=== PATIENT | female | born 1965 | race African-American/Black ===

== ENCOUNTER 2019-03-27 13:58 | Emergency (ER) | payer OTHER, SELFPAY ==
[2019-03-27] MEDS ORDERED: ALPRAZolam 0.5 MG TAB ONE (14:10)
--- NOTE | 2019-03-27 14:54 | RAD ---
RADIOGRAPH CHEST 1 VIEW: HISTORY: 53-year-old female with dyspnea. FINDINGS: There are no air space densities, pulmonary edema, pneumothorax, or cardiomegaly. The lateral costop hrenic angles are sharp. Mildly displaced fractures of posterior aspects of the right 6th and 7th rib s. IMPRESSION: 1. No acute cardiopulmonary findings. 2. Displaced right posterior rib fractures of indeterminate age. jn [] POS: [facility]
== END 2019-03-27 15:01 | disposition home or self-care (01) ==
LOC: BURERS 13:58
DX: F41.1 Generalized anxiety disorder (principal); Z79.899 Other long term (current) drug therapy
CPT/HCPCS: 71045; 93005